=== PATIENT | female | born 1995 | race Caucasian/White ===

== ENCOUNTER 2019-09-11 16:37 | Emergency (ER) | payer OTHER ==
[~2019-09-11] VITALS: Ht 170.2 cm; Wt 68.2 kg
[2019-09-11 16:42] VITALS: TEMP 98.1
[2019-09-11 16:58] LABS: COLLECTION METHOD CLEAN CATCH
[2019-09-11 17:11] LABS: PH 7 (5-8); SQUAMOUS EPITHELIAL None Seen /hpf; URINE APPEARANCE Cloudy; URINE BACTERIA Occasional /hpf; URINE BILIRUBIN Negative (NEGATIVE); URINE BLOOD 1+ (NEGATIVE); URINE COLOR Yellow; URINE GLUCOSE Negative (NEGATIVE); URINE KETONE Negative (NEGATIVE); URINE LEUKOCYTE ESTERASE 3+ (NEGATIVE); URINE NITRATE Positive (NEGATIVE); URINE PROTEIN(semi-quant) Negative (NEGATIVE); URINE UROBILINOGEN Negative (NEGATIVE)
[2019-09-11] MEDS ORDERED: PYRIDIUM200 M1 PO (17:40)
[2019-09-11] MEDS ORDERED: CEFTIN500 MG PO (17:40)
[2019-09-11 18:23] VITALS: BP 125/75; PULSE 82
== END 2019-09-11 18:23 | disposition home or self-care (01) ==
LOC: COL.ER 16:37
PROVIDERS: Emergency Medicine
DX: N39.0 Urinary tract infection, site not specified (principal)